=== PATIENT | female | born 1975 | race Caucasian/White ===

== ENCOUNTER 2018-04-02 22:50 | Emergency (ER) | payer OTHER ==
[~2018-04-02] VITALS: Ht 170.2 cm; Wt 145.1 kg
[2018-04-02 22:58] VITALS: BP_SYST 138
--- NOTE | 2018-04-02 22:59 | NUR ---
Patient to ER bed 08 to gown for evaluation. Side rails up. Report given to RN.
--- NOTE | 2018-04-02 23:00 | NUR ---
Pt is awake and alert. Pt C/O left knee pain starting today at work. Pain stated 03/27. Skin warm and intact. Denies N/V/D. VSS. Will continue to monitor.
[2018-04-02] MEDS ORDERED: KETOROLAC TROMETHAMINE 60 MG/2 ML VIAL IM ONE (23:15)
--- NOTE | 2018-04-02 23:16 | NUR ---
ER at bedside examining patient, Sheba PABLO at bedside with MD and patient at this time.
[2018-04-03 00:20] VITALS: BP_SYST 138
--- NOTE | 2018-04-03 00:20 | NUR ---
Patient given written and verbal discharge instructions and verbalizes understanding. ER MD YAN discussed with patient the results and treatment provided. Patient in stable condition. ID arm band removed. Rx of Tylenol with Codeine given. Patient educated on pain management and to follow up with PMD. Pain Scale 4/10. Opportunity for questions provided and answered. Medication side effect fact sheet provided.
== END 2018-04-03 00:20 | disposition home or self-care (01) ==
LOC: SED 22:50
DX: S83.242A Other tear of medial meniscus, current injury, left knee, initial encounter (principal); M25.562 Pain in left knee; X58.XXXA Exposure to other specified factors, initial encounter; Y93.89 Activity, other specified; Y92.89 Other specified places as the place of occurrence of the external cause; Y99.8 Other external cause status
CPT/HCPCS: 29505; 73564; 96372; 99284; J1885